=== PATIENT | male | born 1955 | race Caucasian/White ===

== ENCOUNTER 2016-11-12 16:10 | Emergency (ER) | payer BC ==
[~2016-11-12] VITALS: Ht 177.8 cm; Wt 90.4 kg
[~2016-11-12 16:10] MED LIST: ASPIR 8181 M1 PO; CENTRUM SILVER1 EAC3 PO; CLONAZEPAM0.5 MG PO; COLACE100 MG PO; EPIPEN ADU0.3 MG/0.3 IM; LORTAB 7.5-3251 EACH PO; METOPROLOL TART25 MG PO; NEXIUM40 MG PO; NIZORAL 2% CREA15 GM TP; PREDNISONE50 MG PO; TRIBENZOR 40-51 EAC4 PO; TRILIPIX135 MG PO
[2016-11-12 16:52] LABS: EOSINOPHIL (%) 0.3 % (0-5); HEMATOCRIT 44.8 % (38.0-50.0); IMMATURE GRANULOCYTE (%) 0.3 % (0.0-0.7); INSTRUMENT ABS NEUTROPHIL CT 3.5 K/uL; LYMPHOCYTE COUNT 0.2 K/uL (1.0-2.8); MCH 30.1 PG (29.0-34.0); MCHC 34.4 G/DL (30.0-36.0); MCV 87.7 FL (86-99); MONOCYTE (%) 5.8 % (3-12); MONOCYTE COUNT 0.2 K/uL (0-0.8); NEUTROPHIL (%) 88.2 % (45-76); NEUTROPHIL COUNT 3.5 K/uL (1.8-6.4); PLATELET COUNT 253 K/uL (156-360); RBC DIS.WIDTH-CV 13.7 % (11.8-14.6); RED BLOOD COUNT 5.11 M/uL (4.00-5.50)
[2016-11-12 17:07] LABS: CHLORIDE 101 mEq/L (99-109); SODIUM 132 mEq/L (136-147)
[2016-11-12 17:10] LABS: GLUCOSE 116 mg/dL (70-99)
[2016-11-12 17:11] LABS: ANION GAP 10 MEQ/L (2-14); TOTAL BILIRUBIN 0.8 mg/dL (0.0-1.0)
[2016-11-12 17:13] LABS: ALKALINE PHOSPHATASE 40 IU/L (3-129); GFR ESTIMATE (CALCULATED) > 59 mL/min/
[2016-11-12 17:14] LABS: UREA NITROGEN (BUN) 22 mg/dL (9-23)
[2016-11-12 17:17] LABS: LIPASE 9 U/L (1.0-51.0)
[2016-11-12] MEDS ORDERED: FLAGYL500 MG PO (18:54)
[2016-11-12] MEDS ORDERED: BENTYL20 MG PO (18:54)
[2016-11-12 20:39] VITALS: BP 130/84
== END 2016-11-12 20:42 | disposition home or self-care (01) ==
LOC: EME → EDBD 16:10 → EME 20:42
PROVIDERS: Emergency Medicine
DX: R10.30 Lower abdominal pain, unspecified (principal); R19.7 Diarrhea, unspecified; E87.6 Hypokalemia; R11.2 Nausea with vomiting, unspecified; I10 Essential (primary) hypertension; Z79.82 Long term (current) use of aspirin
CPT/HCPCS: 74020; 80053; 83605; 83630; 83690; 85025; 87177; 87506; 99281; 99285; J2405; J3480; J7030